=== PATIENT | male | born 1985 | race African-American/Black ===

== ENCOUNTER 2017-11-05 16:06 | Emergency (ER) | payer SELFPAY ==
--- NOTE | 2017-11-05 17:27 | ER Document Report ---
ED Medical Screen (RME) - General Chief Complaint: Passed Out Prior to Arrival Stated Complaint: WEAKNESS, POSSIBLE FAINTING Time Seen by Provider: 11/05/17 17:25 Mode of Arrival: Ambulatory Information source: Patient Notes: 32-year-old male with no reported past medical history presents with complaint of syncope. Patient states that this morning while sitting on the toilet he had a near syncopal event but did not lose consciousness. He states that later in the morning he was standing in his kitchen when he collapsed and the next thing he knew he wound up on the floor. Patient states that this has happened intermittently throughout the last year but he has not sought any medical attention. He denies any preceding shortness of breath, dizziness, chest pain, palpitations. He denies any new or current medication use. She states that he has otherwise been well. I have greeted and performed a rapid initial assessment of this patient. A comprehensive ED assessment and evaluation of the patient including analysis of labs and imaging ( if obtained) and completion of medical decision making will be conducted by an additional ED provider. PHYSICAL EXAMINATION: GENERAL: Well-appearing, well-nourished and in no acute distress. HEAD: Atraumatic, normocephalic. EYES: Pupils equal round extraocular movements intact, conjunctiva are normal. ENT: Nares patent NECK: Normal range of motion LUNGS: No respiratory distress Musculoskeletal: Normal range of motion NEUROLOGICAL: Normal speech, normal gait. PSYCH: Normal mood, normal affect. SKIN: Warm, Dry, normal turgor, no rashes or lesions noted. TRAVEL OUTSIDE OF THE [place] IN LAST 30 DAYS: No - Related Data Allergies/Adverse Reactions: No Known Allergies Allergy (Verified 11/05/17 17:10) Past Medical History - Social History Chew tobacco use (# tins/day): No Frequency of alcohol use: Occasional Drug Abuse: None Renal/ Medical History: Denies: Hx Peritoneal Dialysis Past Surgical History: Reports: Hx Orthopedic Surgery - Immunizations Hx Diphtheria, Pertussis, Tetanus Vaccination: Yes Physical Exam - Vital signs Vitals: Temp Pulse Resp BP Pulse Ox 98.5 F 71 16 120/69 97 11/05/17 16:22 11/05/17 16:22 11/05/17 16:22 11/05/17 16:22 11/05/17 16:22 Course - Vital Signs Vital signs: Temp Pulse Resp BP Pulse Ox 98.5 F 71 16 120/69 97 11/05/17 16:22 11/05/17 16:22 11/05/17 16:22 11/05/17 16:22 11/05/17 16:22
[2017-11-05 18:11] LABS: ABSOLUTE EOSINOPHILS # (AUTO) 0.1 10^3/uL (0.0-0.6); ABSOLUTE LYMPHOCYTES (AUTO) 1.2 10^3/uL (0.5-4.7); ABSOLUTE MONOCYTES (AUTO) 0.5 10^3/uL (0.1-1.4); ABSOLUTE NEUT (AUTO) 4.3 10^3/uL (1.7-8.2); BASOPHILS % (AUTO) 0.5 % (0-2); EOSINOPHILS % (AUTO) 1.2 % (0-6); HEMATOCRIT 45.6 % (37.9-51.0); LYMPHOCYTES % (AUTO) 20.2 % (13-45); MEAN CORPUSCULAR HEMOGLOBIN 27.8 pg (27.0-33.4); MEAN CORPUSCULAR HGB CONC 32.9 g/dL (32.0-36.0); MEAN CORPUSCULAR VOLUME 85 fl (80-97); MONOCYTES % (AUTO) 8.5 % (3-13); PLATELET COUNT 230 10^3/uL (150-450); RED BLOOD COUNT 5.39 10^6/uL (4.35-5.55); RED CELL DISTRIBUTION WIDTH 12.7 % (11.5-14.0); SEGMENTED NEUTROPHILS % (AUTO) 69.6 % (42-78); TOTAL CELLS COUNTED % (AUTO) 100 %; WHITE BLOOD COUNT 6.2 10^3/uL (4.0-10.5)
[2017-11-05 18:20] LABS: APPEARANCE,URINE CLEAR; BILIRUBIN,URINE NEGATIVE (NEGATIVE); COLOR,URINE YELLOW; GLUCOSE, URINE NEGATIVE (NEGATIVE); KETONES,URINE TRACE mg/dL (NEGATIVE); LEUKOCYTE ESTERASE,URINE NEGATIVE (NEGATIVE); NITRITE,URINE NEGATIVE (NEGATIVE); PROTEIN,URINE NEGATIVE (NEGATIVE); URINE SPECIFIC GRAVITY 1.023
[2017-11-05 18:24] LABS: ALANINE AMINOTRANSFERASE 35 U/L (21-72); ALBUMIN 4.7 g/dL (3.5-5.0); ALKALINE PHOSPHATASE 37 U/L (38-126); ANION GAP 11 (5-19); ASPARTATE AMINO TRANSFERASE 36 U/L (17-59); BILIRUBIN,DIRECT 0.3 mg/dL (0.0-0.4); BILIRUBIN,TOTAL 1.3 mg/dL (0.2-1.3); BLOOD UREA NITROGEN 13 mg/dL (7-20); CALCIUM 10.1 mg/dL (8.4-10.2); CARBON DIOXIDE 29 mmol/L (22-30); CHLORIDE 104 mmol/L (98-107); CREATINE KINASE 494 U/L (55-170); GLUCOSE 83 mg/dL (75-110); POTASSIUM 4.7 mmol/L (3.6-5.0); SODIUM 143.8 mmol/L (137-145); TOTAL PROTEIN 7.8 g/dL (6.3-8.2)
[2017-11-05 18:30] LABS: URINE AMPHETAMINES SCREEN NEGATIVE; URINE BARBITURATES SCREEN NEGATIVE; URINE BENZODIAZEPINES SCREEN NEGATIVE; URINE COCAINE SCREEN NEGATIVE; URINE MARIJUANA (THC) SCREEN UNCONFIRMED POSITIVE; URINE METHADONE SCREEN NEGATIVE; URINE PHENCYCLIDINE SCREEN NEGATIVE
[2017-11-05 18:36] LABS: TROPONIN I < 0.012 ng/mL
--- NOTE | 2017-11-05 20:03 | ER Document Report ---
ED General - General Chief Complaint: Passed Out Prior to Arrival Stated Complaint: WEAKNESS, POSSIBLE FAINTING Time Seen by Provider: 11/05/17 17:25 Mode of Arrival: Ambulatory Notes: Patient is a 32-year-old male without chronic medical problems who presents after an episode of syncope. The patient states that earlier today when he went from a sitting to standing position he became lightheaded and then lost consciousness. He denies sustaining any trauma during the syncopal episode. He reports that he frequently has episodes of lightheadedness and near syncope when he has positional change and that this is been ongoing over the past 1 year. He has not seen a general doctor or contact worker regarding these concerns. He denies any symptoms at the time of my assessment. Nothing seems to improve or worsen the frequency of his syncopal episodes. He denies any family history of sudden cardiac . He denies a history of DVT or pulmonary embolus. TRAVEL OUTSIDE OF THE [place] IN LAST 30 DAYS: No - Related Data Allergies/Adverse Reactions: No Known Allergies Allergy (Verified 11/05/17 17:10) Past Medical History - General Information source: Patient - Social History Smoking Status: Never Smoker Chew tobacco use (# tins/day): No Frequency of alcohol use: Occasional Drug Abuse: None Lives with: Family Family History: Reviewed & Not Pertinent Patient has suicidal ideation: No Patient has homicidal ideation: No Renal/ Medical History: Denies: Hx Peritoneal Dialysis Past Surgical History: Reports: Hx Orthopedic Surgery - Immunizations Hx Diphtheria, Pertussis, Tetanus Vaccination: Yes Review of Systems - Review of Systems Notes: Constitutional: Negative for fever. HENT: Negative for sore throat. Eyes: Negative for visual changes. Cardiovascular: Negative for chest pain. Respiratory: Negative for shortness of breath. Gastrointestinal: Negative for abdominal pain, vomiting or diarrhea. Genitourinary: Negative for dysuria. Musculoskeletal: Negative for back pain. Skin: Negative for rash. Neurological: Negative for headaches, weakness or numbness. 10 point ROS negative except as marked above and in HPI. Physical Exam - Vital signs Vitals: Temp Pulse Resp BP Pulse Ox 98.5 F 71 16 120/69 97 11/05/17 16:22 11/05/17 16:22 11/05/17 16:22 11/05/17 16:22 11/05/17 16:22 Interpretation: Normal Notes: PHYSICAL EXAMINATION: GENERAL: Well-appearing, well-nourished and in no acute distress. HEAD: Atraumatic, normocephalic. EYES: Pupils equal round and reactive to light, extraocular movements intact, sclera anicteric, conjunctiva are normal. ENT: nares patent, oropharynx clear without exudates. Moist mucous membranes. NECK: Normal range of motion, supple without lymphadenopathy LUNGS: Breath sounds clear to auscultation bilaterally and equal. No wheezes rales or rhonchi. HEART: Regular rate and rhythm without murmurs ABDOMEN: Soft, nontender, normoactive bowel sounds. No guarding, no rebound. No masses appreciated. EXTREMITIES: Normal range of motion, no pitting or edema. No cyanosis. NEUROLOGICAL: No focal neurological deficits. Moves all extremities spontaneously and on command. PSYCH: Normal mood, normal affect. SKIN: Warm, Dry, normal turgor, no rashes or lesions noted. Course - Re-evaluation Re-evalutation: 11/05/17 20:02 Presentation of syncope of unclear etiology. Of note, contrary to triage assessment the patient did have prodromal symptoms of lightheadedness and the syncope did occur when he went from a sitting to standing position. He states that every time he has had syncope it has been under this context. Patient normotensive, alert, without focal neurologic deficits at time of arrival. Denies syncope was during exertion. No preceding symptoms of palpitations, chest pain, or shortness of breath. Patient asymptomatic at time of arrival. EKG is without evidence of HCOM, right heart strain, ST changes to suggest ischemia, prolong QTc, delta wave, epsilon wave, or Brugada syndrome. Patient denies any family history of sudden cardiac , personal history of of structural heart disease. Patient denies any symptoms to suggest an acute PE, MO , TAD, SAH, seizure, or acute GI bleed as the etiology of their syncope today. On exam, no murmurs to suggest critical aortic stenosis as possible etiology. Based on overall clinical history, exam findings, vitals, and patients appearance, I feel it is safe for patient to be discharged home at this time with close outpatient follow-up and strict return precautions. Patient is in agreement with this plan, has verbalized indications for return to ED, and questions have been answered. - Vital Signs Vital signs: Temp Pulse Resp BP Pulse Ox 98.5 F 71 18 119/71 98 11/05/17 16:22 11/05/17 16:22 11/05/17 21:00 11/05/17 20:59 11/05/17 21:00 - Laboratory Result Diagrams: 11/05/17 17:40 11/05/17 17:40 Laboratory results interpreted by me: 11/05/17 11/05/17 17:40 17:40 Alkaline Phosphatase 37 L Creatine Kinase 494 H Urine Ketones TRACE H Urine Urobilinogen 4.0 H - EKG Interpretation by Me Additional EKG results interpreted by me: 11/05/17 20:02 Sinus rhythm. Rate 75. No ST elevations or depressions. QTC is 420. Discharge - Discharge Clinical Impression: Orthostatic hypotension Syncope Qualifiers: Syncope type: unspecified Qualified Code(s): R55 - Syncope and collapse Condition: Good Disposition: HOME, SELF-CARE Additional Instructions: You were seen today after an episode of passing out. Your EKG here is normal. At this time, we do not feel that your episode of passing out was from any life- threatening cause. Please drink plenty of fluids over the next several days. Return to emergency department if you have any further episodes of syncope, headache, weakness, numbness, chest pain, or shortness of breath. Please follow -up with cardiology at your earliest ability for consideration of a Holter monitor and an echocardiogram. Referrals: LIVIER LUGO MD [ACTIVE STAFF] - Follow up in 3-5 days
[2017-11-05 21:04] VITALS: BP 119/71
--- NOTE | 2017-11-06 00:55 | EKG REPORT ---
SEVERITY:- BORDERLINE ECG - SINUS RHYTHM PROBABLE LEFT ATRIAL ABNORMALITY BORDERLINE RIGHT AXIS DEVIATION : Confirmed by: Corina Guzman MD 06-Nov-2017 00:55:09
== END 2017-11-05 21:16 | disposition home or self-care (01) ==
LOC: ER 16:06
DX: I95.1 Orthostatic hypotension (principal)
CPT/HCPCS: 36415; 80053; 80307; 81001; 82550; 82553; 84484; 85025; 93005; 93010; 99284

== ENCOUNTER 2018-05-18 18:01 | Emergency (ER) | payer SELFPAY ==
--- NOTE | 2018-05-18 18:07 | ER Document Report ---
ED Medical Screen (RME) - General Stated Complaint: POSSIBLE STROKE Time Seen by Provider: 05/18/18 18:04 Notes: 33-year-old male with a history of multiple syncopal episodes brought to the emergency department by his mother after he passed out at home and hit his head, she states it took longer than usual for him to wake up and she is now worried that he might be having a stroke he is not acting like himself. She states that on the way into the hospital he had multiple episodes would like he was choking or gagging, she is not certain whether or not he was seizing. Denies any blood thinners. TRAVEL OUTSIDE OF THE [place] IN LAST 30 DAYS: No - Related Data Allergies/Adverse Reactions: No Known Allergies Allergy (Verified 11/05/17 17:10) Past Medical History - General Information source: Parent Renal/ Medical History: Denies: Hx Peritoneal Dialysis Past Surgical History: Reports: Hx Orthopedic Surgery - Immunizations Hx Diphtheria, Pertussis, Tetanus Vaccination: Yes Physical Exam - Notes Notes: Patient is sitting in a wheelchair, is able to move all 4 extremities but has difficulty following commands, will not follow the command to smile. Cannot answer any of my questions beyond telling me that he passed out. Patient does have approximately a 6 cm hematoma to the left side of the occiput. There is no facial droop. Course - Re-evaluation Re-evalutation: 05/18/18 18:06 Patient is acutely altered. I am concerned for the possibility of intracranial hemorrhage versus seizure due to the fact that he did hit his head and he does have altered mental status at this time. Patient will be taken straight back to the main part of the emergency department and have a CT scan performed. GCS 14 eye response 4, verbal response 4, motor response 6.
[2018-05-18 18:30] LABS: ABSOLUTE BASOPHILS # (AUTO) 0.1 10^3/uL (0.0-0.2); ABSOLUTE LYMPHOCYTES (AUTO) 0.6 10^3/uL (0.5-4.7); ABSOLUTE MONOCYTES (AUTO) 0.8 10^3/uL (0.1-1.4); ABSOLUTE NEUT (AUTO) 7.1 10^3/uL (1.7-8.2); BASOPHILS % (AUTO) 0.6 % (0-2); EOSINOPHILS % (AUTO) 0.1 % (0-6); HEMOGLOBIN 13.6 g/dL (13.5-17.0); LYMPHOCYTES % (AUTO) 6.5 % (13-45); MEAN CORPUSCULAR HGB CONC 33.2 g/dL (32.0-36.0); MEAN CORPUSCULAR VOLUME 84 fl (80-97); MONOCYTES % (AUTO) 9.3 % (3-13); PLATELET COUNT 211 10^3/uL (150-450); RED BLOOD COUNT 4.87 10^6/uL (4.35-5.55); RED CELL DISTRIBUTION WIDTH 12.6 % (11.5-14.0); SEGMENTED NEUTROPHILS % (AUTO) 83.5 % (42-78); TOTAL CELLS COUNTED % (AUTO) 100 %; WHITE BLOOD COUNT 8.5 10^3/uL (4.0-10.5)
--- NOTE | 2018-05-18 18:33 | RADIOLOGY REPORT (SQ) ---
EXAM DESCRIPTION: CT HEAD WITHOUT COMPLETED DATE/TIME: 05/18/2018 6:15 pm REASON FOR STUDY: fell, hit head, LOC, confused, slurred COMPARISON: None. TECHNIQUE: Axial images acquired through the brain without intravenous contrast. Images reviewed wi th bone, brain and subdural windows. Additional sagittal and coronal reconstructions were generated. Images stored on PACS. All CT scanners at this facility use dose modulation, iterative reconstruction, and/or weight based d osing when appropriate to reduce radiation dose to as low as reasonably achievable (ALARA). [facility]: Dose Right [facility]: CareDose [facility]: Dose Right [facility]: Teradose 4D [facility]: [employer] RADIATION DOSE: CT Rad equipment meets quality standard of care and radiation dose reduction techniq ues were employed. CTDIvol: 53.2 mGy. DLP: 911 mGy-cm. mGy. LIMITATIONS: None. FINDINGS: VENTRICLES: Normal size and contour. CEREBRUM: No masses. No hemorrhage. No midline shift. No evidence for acute infarction. Normal gra y/white matter differentiation. No areas of low density in the white matter. CEREBELLUM: No masses. No hemorrhage. No alteration of density. No evidence for acute infarction. EXTRAAXIAL SPACES: No fluid collections. No masses. ORBITS AND GLOBE: No intra- or extraconal masses. Normal contour of globe without masses. CALVARIUM: No fracture. PARANASAL SINUSES: There is a small mucous retention cyst in the right maxillary sinus. SOFT TISSUES: No mass or hematoma. OTHER: No other significant finding. IMPRESSION: NORMAL BRAIN CT WITHOUT CONTRAST. EVIDENCE OF ACUTE STROKE: NO. COMMENT: Quality ID # 436: Final reports with documentation of one or more dose reduction techniques (e.g., Automated exposure control, adjustment of the mA and/or kV according to patient size, use of iterative reconstruction technique) TECHNICAL DOCUMENTATION: JOB ID: [id number] [email or web address]- All Rights Reserved Reading location - IP/workstation name: [email or web address]
--- NOTE | 2018-05-18 18:33 | RADIOLOGY REPORT (SQ) ---
EXAM DESCRIPTION: CHEST SINGLE VIEW COMPLETED DATE/TIME: 05/18/2018 6:17 pm REASON FOR STUDY: fell, hit head, LOC, confused, slurred COMPARISON: None. EXAM PARAMETERS: NUMBER OF VIEWS: One view. TECHNIQUE: Single frontal radiographic view of the chest acquired. RADIATION DOSE: NA LIMITATIONS: None. FINDINGS: LUNGS AND PLEURA: No opacities, masses or pneumothorax. No pleural effusion. MEDIASTINUM AND HILAR STRUCTURES: No masses. Contour normal. HEART AND VASCULAR STRUCTURES: Heart normal in size. Normal vasculature. BONES: No acute findings. HARDWARE: None in the chest. OTHER: No other significant finding. IMPRESSION: NO ACUTE RADIOGRAPHIC FINDING IN THE CHEST. TECHNICAL DOCUMENTATION: JOB ID: [id number] [email or web address]- All Rights Reserved Reading location - IP/workstation name: [email or web address]
[2018-05-18 18:35] LABS: INTERNATIONAL RATION (INR) 0.95; PROTHROMBIN TIME 13.1 SEC (11.4-15.4)
[2018-05-18 18:57] LABS: PARTIAL THROMBOPLASTIN TIME < 20.0 SEC (23.5-35.8)
[2018-05-18 18:58] LABS: CREATINE KINASE MB 2.03 ng/mL (<4.55)
[2018-05-18 18:59] LABS: TROPONIN I < 0.012 ng/mL
[2018-05-18 19:07] LABS: ALANINE AMINOTRANSFERASE 24 U/L (21-72); ALBUMIN 4.6 g/dL (3.5-5.0); ALKALINE PHOSPHATASE 31 U/L (38-126); ANION GAP 7 (5-19); ASPARTATE AMINO TRANSFERASE 39 U/L (17-59); BILIRUBIN,DIRECT 0.3 mg/dL (0.0-0.4); BILIRUBIN,TOTAL 0.9 mg/dL (0.2-1.3); BLOOD UREA NITROGEN 17 mg/dL (7-20); CALCIUM 9.8 mg/dL (8.4-10.2); CARBON DIOXIDE 29 mmol/L (22-30); CHLORIDE 103 mmol/L (98-107); CREATINE KINASE 714 U/L (55-170); GLUCOSE 116 mg/dL (75-110); SODIUM 139.3 mmol/L (137-145); TOTAL PROTEIN 7.1 g/dL (6.3-8.2)
--- NOTE | 2018-05-18 20:13 | RADIOLOGY REPORT (SQ) ---
EXAM DESCRIPTION: MR BRAIN WITHOUT IV CONTRAST COMPLETED DATE/TME: 05/18/2018 18:52 CLINICAL HISTORY: 33 years, Male, concern for stroke COMPARISON: CT 05/18/2018 TECHNIQUE: 289 Images stored on PACS. LIMITATIONS: None. FINDINGS: Sagittal midline anatomic structures demonstrate an unremarkable appearance to the pituitary and suprasellar regions. Prominent adenoid tissue of the posterior nasopharynx. The globes are intact. Polyps of the right maxillary sinus. Normal flow void in visualized intracranial vessels. The visualized cranial nerve complexes are unremarkable. There is no intra or extra-axial hemorrhage. Diffusion-weighted images are normal, without evidence for acute infarct. There is no mass, mass effect, or midline shift. The ventricles are symmetric. Cai-white matter differentiation is preserved. IMPRESSION: Prominent adenoid tissue in the posterior nasopharynx. Polyp of the right maxillary sinus. Remainder of the MRI brain is unremarkable. copyright 2010 [employer]- All Rights Reserved
--- NOTE | 2018-05-18 20:33 | ER Document Report ---
ED General - General Chief Complaint: Altered Mental Status Stated Complaint: POSSIBLE STROKE Time Seen by Provider: 05/18/18 18:04 TRAVEL OUTSIDE OF THE [place] IN LAST 30 DAYS: No - Related Data Allergies/Adverse Reactions: No Known Allergies Allergy (Verified 05/18/18 18:25) Past Medical History - General Information source: Parent - Social History Smoking Status: Never Smoker Chew tobacco use (# tins/day): No Frequency of alcohol use: None Drug Abuse: Marijuana Family History: Reviewed & Not Pertinent Patient has suicidal ideation: No Patient has homicidal ideation: No Renal/ Medical History: Denies: Hx Peritoneal Dialysis Past Surgical History: Reports: Hx Orthopedic Surgery - Immunizations Hx Diphtheria, Pertussis, Tetanus Vaccination: Yes Physical Exam - Vital signs Vitals: Pulse Ox 96 05/18/18 18:04 Course - Re-evaluation Re-evalutation: [age]-year-old gentleman that presented for concern of potential stroke. I immediately presented to the room to evaluate this patient. He had just returned from CAT scan, he demonstrated global cognitive slowing without any focal neurologic deficit. He was oriented to self place and time. He was somewhat disoriented to events. Because of concern for potential stroke in the atypical history that he as well as his mother are able to give we will proceed with MRI of the brain. Sounds like his last known normal was around 10 AM though based on a story he tells and then his mother tells it sounds as if he actually was arrested on an outstanding warrant and taken to [facility] at which time he fell hit his head called her had no recollection of the event and was confused thereafter. CAT scan of his head did not show any acute intracranial process. Blood work is unremarkable at this time, patient is negative initial troponin unremarkable chest x-ray unremarkable head CT with a negative MRI of the brain. Reassess this patient and upon reassessment it is notable that this patient in fact continues to clear cognitively though seems somewhat fatigued. I did concern for potential ingestion as he continued to demonstrate cognitive slowing and somewhat effort limited involvement. Because of this concern for potential ingestion did administer 2 mg of Narcan while awaiting a toxicology screen the urine. Despite the administration of Narcan patient's cognitive slowing did not resolve entirely. He continued to demonstrate some symptoms. After several hours of observation in the emergency department this patient's mental status improved steadily. He was able to ambulate without assistance the emergency department. It is notable that this gentleman was able to answer all questions appropriately. His mother was at the bedside, she noted that this while abnormal for him it looks like he was doing better. Because this gentleman has a nonfocal neurologic examination at the time I believe that he likely has what is probably an underlying concussion. I believe he is likely safe for discharge home with return precautions and expectant management. - Vital Signs Vital signs: Temp Pulse Resp BP Pulse Ox 99.1 F 69 12 104/61 99 05/18/18 18:37 05/18/18 18:24 05/18/18 23:01 05/18/18 23:00 05/18/18 23:01 - Laboratory Result Diagrams: 05/18/18 18:21 05/18/18 18:21 Laboratory results interpreted by me: 05/18/18 05/18/18 05/18/18 18:21 18:21 18:21 Seg Neutrophils % 83.5 H Lymphocytes % 6.5 L APTT < 20.0 L* Glucose 116 H Alkaline Phosphatase 31 L Creatine Kinase 714 H Urine Blood 05/18/18 21:26 Seg Neutrophils % Lymphocytes % APTT Glucose Alkaline Phosphatase Creatine Kinase Urine Blood SMALL H Discharge - Discharge Clinical Impression: Confusion, Weakness Concussion Qualifiers: Encounter type: initial encounter Loss of consciousness presence/duration: with LOC of 30 min or less Qualified Code(s): S06.0X1A - Concussion with loss of consciousness of 30 minutes or less, initial encounter Condition: Good Disposition: HOME, SELF-CARE Instructions: Post-Concussion Syndrome ([facility]), Concussion ([facility]) Additional Instructions: You were seen today in the emergency department for your concussion. You had an evaluation including a physical exam, and MRI of your brain, a CAT scan of your brain, monitoring in the emergency department, blood tests. It is likely that you have a severe concussion. You need to take a rest tomorrow, stay in a dark room avoid staring at any bright screens. If you do not have a headache after resting in a dark room for approximately 12 hours you can take a light walk and begin to do some daily activities. You should use the medication for headache only as needed which is been prescribed to you. Schedule an appointment the doctor this week, if you have worsening headache, numbness or weakness anywhere or worsening confusion please return to the emergency room. Prescriptions: Butalb/Acetaminophen/Caffeine [Fioricet (50-325-40 mg) Tablet] 1 tab PO Q4HP PRN #30 tab PRN Reason: Referrals: [facility] [Provider Group] - Follow up in 3-5 days
[2018-05-18] MEDS ORDERED: NALOXONE HCL INJ 2 MG/2 ML DISP.SYRIN IV ONE (21:01)
[2018-05-18] MEDS: NORMAL SALINE 1000 ML 1,000 ML IV PRN ×2 (21:35→21:36)
[2018-05-18 21:57] LABS: APPEARANCE,URINE CLEAR; BILIRUBIN,URINE NEGATIVE (NEGATIVE); COLOR,URINE YELLOW; GLUCOSE, URINE NEGATIVE (NEGATIVE); KETONES,URINE NEGATIVE (NEGATIVE); LEUKOCYTE ESTERASE,URINE NEGATIVE (NEGATIVE); NITRITE,URINE NEGATIVE (NEGATIVE); PROTEIN,URINE NEGATIVE (NEGATIVE); URINE SPECIFIC GRAVITY 1.009; UROBILINOGEN,URINE NEGATIVE mg/dL (<2.0)
[2018-05-18 22:10] LABS: URINE AMPHETAMINES SCREEN NEGATIVE; URINE BARBITURATES SCREEN NEGATIVE; URINE BENZODIAZEPINES SCREEN NEGATIVE; URINE COCAINE SCREEN NEGATIVE; URINE MARIJUANA (THC) SCREEN UNCONFIRMED POSITIVE; URINE METHADONE SCREEN NEGATIVE; URINE PHENCYCLIDINE SCREEN NEGATIVE
--- NOTE | 2018-05-18 23:01 | EKG REPORT ---
SEVERITY:- OTHERWISE NORMAL ECG - SINUS RHYTHM BORDERLINE RIGHT AXIS DEVIATION : Confirmed by: Corian Guzman MD 18-May-2018 22:59:40
[2018-05-19 00:34] VITALS: BP 122/76
== END 2018-05-19 00:15 | disposition home or self-care (01) ==
LOC: ER 18:01
DX: S06.0X1A Concussion with loss of consciousness of 30 minutes or less, initial encounter (principal); R41.0 Disorientation, unspecified; R53.1 Weakness; R51 Headache; W19.XXXA Unspecified fall, initial encounter
CPT/HCPCS: 93005; 99285; 36415; 82553; 82962; 82550; 85025; 85610; 85730; 80053; 81001; 84484; 80307; 70551; 71045; 70450; 93010; J2310; J7030

== ENCOUNTER 2018-05-21 08:51 | Emergency (ER) | payer SELFPAY ==
--- NOTE | 2018-05-21 09:59 | ER Document Report ---
ED Medical Screen (RME) - General Chief Complaint: Headache Stated Complaint: HEADACHE Time Seen by Provider: 05/21/18 09:32 Notes: 33-year-old male patient reports being in [facility] Monday morning standing by the phone when he fell out and hit his head. He reports waking up with people standing over him and they told him that he hit his head quite hard. He was brought to the emergency room Monday evening about 6 PM. He was here several hours for workup that included MRI of the brain. There are no significant findings and he was discharged with diagnosis of confusion and concussion. He returns today complaining of occasional twitching which has him scared. He is also had a headache since the episode on Monday. I have greeted and performed a rapid initial assessment of this patient. A comprehensive ED assessment and evaluation of the patient, analysis of test results and completion of the medical decision making process will be conducted by additional ED providers. TRAVEL OUTSIDE OF THE [place] IN LAST 30 DAYS: No - Related Data Allergies/Adverse Reactions: No Known Allergies Allergy (Verified 05/21/18 08:53) Past Medical History - Social History Chew tobacco use (# tins/day): No Frequency of alcohol use: None Drug Abuse: Marijuana Renal/ Medical History: Denies: Hx Peritoneal Dialysis Past Surgical History: Reports: Hx Orthopedic Surgery - Immunizations Hx Diphtheria, Pertussis, Tetanus Vaccination: Yes Physical Exam - Vital signs Vitals: Temp Pulse Resp BP Pulse Ox 98.1 F 72 16 121/79 100 05/21/18 08:54 05/21/18 08:54 05/21/18 08:54 05/21/18 08:54 05/21/18 08:54 Course - Vital Signs Vital signs: Temp Pulse Resp BP Pulse Ox 98.1 F 72 16 121/79 100 05/21/18 08:54 05/21/18 08:54 05/21/18 08:54 05/21/18 08:54 05/21/18 08:54
[2018-05-21] MEDS ORDERED: PROCHLORPERAZINE MALEATE 5 MG TABLET PO ONE (11:16)
[2018-05-21] MEDS ORDERED: ONDANSETRON 4 MG TAB.RAPDIS PO ONE (11:16)
--- NOTE | 2018-05-21 11:43 | RADIOLOGY REPORT (SQ) ---
EXAM DESCRIPTION: CT HEAD WITHOUT COMPLETED DATE/TIME: 05/21/2018 11:32 am REASON FOR STUDY: fall COMPARISON: None. TECHNIQUE: Axial images acquired through the brain without intravenous contrast. Images reviewed wi th bone, brain and subdural windows. Additional sagittal and coronal reconstructions were generated. Images stored on PACS. All CT scanners at this facility use dose modulation, iterative reconstruction, and/or weight based d osing when appropriate to reduce radiation dose to as low as reasonably achievable (ALARA). [facility]: Dose Right [facility]: CareDose [facility]: Dose Right [facility]: Teradose 4D [facility]: [employer] RADIATION DOSE: CT Rad equipment meets quality standard of care and radiation dose reduction techniq ues were employed. CTDIvol: 53.2 mGy. DLP: 1017 mGy-cm. mGy. LIMITATIONS: None. FINDINGS: VENTRICLES: Normal size and contour. CEREBRUM: No masses. No hemorrhage. No midline shift. No evidence for acute infarction. Normal gra y/white matter differentiation. No areas of low density in the white matter. CEREBELLUM: No masses. No hemorrhage. No alteration of density. No evidence for acute infarction. EXTRAAXIAL SPACES: No fluid collections. No masses. ORBITS AND GLOBE: No intra- or extraconal masses. Normal contour of globe without masses. CALVARIUM: No fracture. PARANASAL SINUSES: No fluid levels. SOFT TISSUES: No mass or hematoma. OTHER: No other significant finding. IMPRESSION: NORMAL BRAIN CT WITHOUT CONTRAST. EVIDENCE OF ACUTE STROKE: NO. COMMENT: Quality ID # [id number]: Final reports with documentation of one or more dose reduction techniques (e.g., Automated exposure control, adjustment of the mA and/or kV according to patient size, use of iterative reconstruction technique) TECHNICAL DOCUMENTATION: JOB ID: [id number] [employer]- All Rights Reserved Reading location - IP/workstation name: [email or web address]
--- NOTE | 2018-05-21 13:31 | ER Document Report ---
ED General - General Chief Complaint: Headache Stated Complaint: HEADACHE Time Seen by Provider: 05/21/18 09:32 Primary Care Provider: CEDRIC TAFOYA MD [NO LOCAL MD] - Follow up as needed TRAVEL OUTSIDE OF THE [place] IN LAST 30 DAYS: No - HPI Patient complains to provider of: Headache Notes: Patient coming in for evaluation of headache. Patient was seen approximately 2- 3 days ago for strokelike symptoms patient was seen by the ER triage provider notes provided below. 33-year-old male patient reports being in shelter Monday morning standing by the one when he fell out and hit his head. He reports waking up with people standing over him and they told him that he hit his head quite hard. He was brought to the emergency room Monday evening about 6 PM. He was here several hours for workup that included MRI of the brain. There are no significant findings and he was discharged with diagnosis of confusion and concussion. He returns today complaining of occasional twitching which has him scared. He is also had a headache since the episode on Monday. Upon my evaluation patient does cooperate with the story. Patient states he has continued to take the Fioricet as prescribed to him patient does state he is continues to smoke marijuana. Patient looks to be in no obvious distress. Patient resting comfortably denies any new trauma since the fall hitting his head A brief review of the patient's past medical records available in [facility] [employer] was performed - Related Data Allergies/Adverse Reactions: No Known Allergies Allergy (Verified 05/21/18 08:53) Past Medical History - Social History Smoking Status: Never Smoker Chew tobacco use (# tins/day): No Frequency of alcohol use: None Drug Abuse: Marijuana Family History: Reviewed & Not Pertinent Patient has suicidal ideation: No Patient has homicidal ideation: No Renal/ Medical History: Denies: Hx Peritoneal Dialysis Past Surgical History: Reports: Hx Orthopedic Surgery - Immunizations Hx Diphtheria, Pertussis, Tetanus Vaccination: Yes Review of Systems - Review of Systems Constitutional: No symptoms reported EENT: No symptoms reported Cardiovascular: No symptoms reported Respiratory: No symptoms reported Gastrointestinal: No symptoms reported Genitourinary: No symptoms reported Male Genitourinary: No symptoms reported Musculoskeletal: No symptoms reported Skin: No symptoms reported Hematologic/Lymphatic: No symptoms reported Neurological/Psychological: Headaches, Tremor -: Yes All other systems reviewed and negative Physical Exam - Vital signs Vitals: Temp Pulse Resp BP Pulse Ox 98.1 F 72 16 121/79 100 05/21/18 08:54 05/21/18 08:54 05/21/18 08:54 05/21/18 08:54 05/21/18 08:54 Interpretation: Normal - General General appearance: Appears well, Alert - HEENT Head: Normocephalic, Atraumatic Eyes: Normal Pupils: PERRL - Respiratory Respiratory status: No respiratory distress Chest status: Nontender Breath sounds: Normal Chest palpation: Normal - Cardiovascular Rhythm: Regular Heart sounds: Normal auscultation Murmur: No - Abdominal Inspection: Normal Distension: No distension Bowel sounds: Normal Tenderness: Nontender Organomegaly: No organomegaly - Back Back: Normal, Nontender - Extremities General upper extremity: Normal inspection, Nontender, Normal color, Normal ROM, Normal temperature General lower extremity: Normal inspection, Nontender, Normal color, Normal ROM, Normal temperature, Normal weight bearing. No: Tomer's sign - Neurological Neuro grossly intact: Yes Cognition: Normal Orientation: AAOx4 Mike Coma Scale Eye Opening: Spontaneous Mike Coma Scale Verbal: Oriented [place] Coma Scale Motor: Obeys Commands [place] Coma Scale Total: 15 Speech: Normal Motor strength normal: LUE, RUE, LLE, RLE Sensory: Normal - Psychological Associated symptoms: Normal affect, Normal mood - Skin Skin Temperature: Warm Skin Moisture: Dry Skin Color: Normal Course - Re-evaluation Re-evalutation: 05/21/18 15:27 The patient presents with headache without signs of [employer] bleed, stroke, infection, or other serious etiology. The patient is neurologically intact. Given the extremely low risk of these diagnoses further testing and evaluation for these possibilities does not appear to be indicated at this time. The patient has been instructed to return if the symptoms worsen or change in any way.. I did repeat the patient's head CT to look for possible delayed bleed with this being negative along with MRI being negative patient may be still experiencing postconcussive symptoms I did recommend patient follow-up with a neurologist to stop taking the Fioricet and treat his headaches with Tylenol and Motrin. Patient states understanding was discharged home. Patient was also encouraged to not drink any alcohol or smoke any marijuana - Vital Signs Vital signs: Temp Pulse Resp BP Pulse Ox 98.8 F 58 L 16 103/59 L 98 05/21/18 13:38 05/21/18 13:38 05/21/18 13:38 05/21/18 13:38 05/21/18 13:38 Discharge - Discharge Clinical Impression: Concussion Qualifiers: Encounter type: initial encounter Loss of consciousness presence/duration: with LOC of unspecified duration Qualified Code(s): S06.0X9A - Concussion with loss of consciousness of unspecified duration, initial encounter Condition: Stable Disposition: HOME, SELF-CARE Instructions: Family Physicians / Practices, Headache ([facility]), Post-Concussion Syndrome ([facility]) Additional Instructions: I would highly recommend she follow-up with neurology for further evaluation of your symptoms your evaluation here in the emergency room today does not reveal any emergent cause of your symptoms please discontinue taking the Fioricet I recommend only taken Tylenol and Motrin for your headache I would also recommend abstaining from any alcohol or illicit drug use including marijuana return to ER symptoms worsen follow-up with your primary care physician for neurology referral Referrals: CEDRIC TAFOYA MD [NO LOCAL MD] - Follow up as needed
[2018-05-21 13:55] VITALS: BP 103/59
== END 2018-05-21 13:55 | disposition home or self-care (01) ==
LOC: ER 08:51
DX: S06.0X9A Concussion with loss of consciousness of unspecified duration, initial encounter (principal); R51 Headache; W19.XXXA Unspecified fall, initial encounter; Y92.149 Unspecified place in prison as the place of occurrence of the external cause; F12.10 Cannabis abuse, uncomplicated; R25.1 Tremor, unspecified
CPT/HCPCS: 99284; 70450; S0119; S0183